=== PATIENT | male | born 1970 | race Caucasian/White ===

== ENCOUNTER → 2018-02-12 13:58 | Outpatient (CLI) | payer SELFPAY ==
[2018-02-12 14:24] VITALS: BP 125/90; PULSE 79; RESP 15; TEMP 37.2; O2SAT 97; BMI 32.8
[2018-02-12 14:48] VITALS: BP 110/81; PULSE 86; RESP 15; O2SAT 96
[2018-02-12 15:47] LABS: Absolute Lymphocyte Count 1.61 X10^3/ul (0.83-4.51); Absolute Neutrophil Count 2.1 X10^3/uL (2.0-7.7); Basophil# 0.02 X10^3/uL; Basophil% 0.5 % (0-1); Eosinophil# 0.07 X10^3/uL; Eosinophils% 1.6 % (0-5); Hematocrit 46.4 % (40-54); Hemoglobin 16.6 g/dl (13.0-16.5); Immature Platelet Fraction 3.2 % (1.0-7.9); Lymphocyte # 1.61 X10^3/ul (4.0); Lymphocyte % 37.5 % (19-41); Mean Corp Hgb Conc 35.8 g/gl (32-36); Mean Corpuscular Hgb 32.9 pg (27.0-32.0); Mean Corpuscular Volume 91.9 fL (80-94); Mean Platelet Vol. 11.2 fl (6.2-12.0); Monocyte# 0.45 X10^3/uL; Monocyte% 10.5 % (0-10); Neutrophil # 2.13 X10^3/uL (2.7-7.7); Neutrophil % 49.7 % (47-70); Platelet Count 208 K/mm3 (150-450); RBC Distribution Width CV 12.5 % (11.6-14.6); RBC Distribution Width SD 41.9 fl (35.1-43.9); Red Blood Count 5.05 M/mm3 (4.6-6.2); Reticulocyte Count 2.23 % (0.5-1.5); White Blood Count 4.3 K/mm3 (4.4-11.0)
[2018-02-12 15:54] LABS: Ferritin 200 ng/mL (26-388)
[2018-02-12 16:09] LABS: POSITIVE COUNT NO; POSITIVE DIFFERENTIAL NO; POSITIVE MORPHOLOGY NO
== END ==
PROVIDERS: Family Provider Family Medicine; PCP Family Medicine; Referring Provider Family Medicine; Visit Provider Family Medicine
DX: E83.118 Other hemochromatosis (principal)
CPT/HCPCS: 82728; 85025; 85045; 99195; A4216

== ENCOUNTER → 2018-11-07 15:05 | Outpatient (CLI) | payer OTHER, SELFPAY ==
[2018-02-12 14:24] VITALS: BMI 32.8
[2018-11-07 15:18] VITALS: BP 144/84; PULSE 73; RESP 16; TEMP 36.8; BMI 32.8
== END ==
PROVIDERS: Family Provider Family Medicine; PCP Family Medicine; Referring Provider Family Medicine; Visit Provider Family Medicine
DX: E83.119 Hemochromatosis, unspecified (principal)
CPT/HCPCS: 99195; A4216

== ENCOUNTER 2020-11-26 21:41 | Emergency (ER) | payer OTHER, SELFPAY ==
[2020-11-26 21:43] VITALS: BP 162/102; PULSE 74; RESP 18; TEMP 36.1; O2SAT 98; BMI 33.8
--- NOTE | 2020-11-26 22:10 | EKG12_ITS ---
Test Reason : DIZZINESS Blood Pressure : / mmHG Vent. Rate : 079 BPM Atrial Rate : 079 BPM P-R Int : 166 ms QRS Dur : 080 ms QT Int : 368 ms P-R-T Axes : 036 000 007 degrees QTc Int : 421 ms Sinus rhythm with sinus arrhythmia with occasional Premature ventricular complexes Otherwise normal ECG Confirmed by SEVEN MOJICA, JUANIS ([id number]), editor producer GORGE PERDOMO ([id number]) on 11/30/2020 1:01:13 PM Referred By: YUDITH Confirmed By:JUANIS AMEZCUA MD
--- NOTE | 2020-11-26 22:10 | CT_ITS ---
EXAMINATION : Head CT w/out contrast HISTORY : dizziness COMPARISON : None. TECHNIQUE : Multiple contiguous axial images were obtained from the skull base to the vertex without intravenous contrast. A radiation dose optimization technique was used for this scan. FINDINGS : The ventricles and sulci are normal in size. There is no evidence for acute intracranial hemorrhage, mass effect, or midline shift. There is no extra-axial fluid collection. There is normal somers-white differentiation, without CT evidence of acute ischemia or infarct. The skull base and calvarium are unremarkable. The orbits are unremarkable. Mucosal thickening of the bilateral maxillary sinuses. The mastoid air cells are well-aerated. The soft tissues are unremarkable. CT/Brain/Head without Contrast IMPRESSION: No acute intracranial abnormality. Bilateral maxillary sinusitis. Electronically Signed: Atul Umana MD at 23:14 EDT Tel , Service support ,
--- NOTE | 2020-11-26 22:13 | EX.ED.DYSGE1 ---
HPI History of Present Illness Chief Complaint: Dizziness Narrative Narrative: Patient is a 50-year-old male with history of hypertension. He states this evening he was at work when he had a bout of loose stool and then episodes of vomiting. He states he was standing doing his job following this and then began to feel lightheaded like he was going to pass out. He denies any palpitations or chest pain or shortness of breath associated with this. He denies any recent head trauma or headache. He states she was able to sit at rest for approximately 30 minutes and then began to feel better. However with the symptoms occurring at work they had concern and therefore sent him in for evaluation [facility] Medical History Hemochromatosis Hypertension Home Medications losartan 75 mg PO DAILY 11/26/20 [History Last Taken Unknown] Allergy/AdvReac Type Severity Reaction Status Date / Time No Known Allergies Allergy Verified 11/26/20 21:42 Social History Smoking Status: Former smoker ROS ROS ED Constitutional Constitutional ED: Denies chills or fever(s) Eyes Eyes: Denies change in vision ENT ENT ED: Denies sore throat Cardiovascular Cardiovascular: Denies chest pain, palpitations or racing heartbeat Respiratory/Chest Respiratory/Chest: Denies cough or dyspnea Gastrointestinal Gastrointestinal: Reports diarrhea, nausea and vomiting; Denies abdominal pain Genitourinary Genitourinary ED: Denies dysuria Musculoskeletal Musculoskeletal: Denies myalgias Integumentary Denies rash Neurologic Neurologic: Reports other Details: Positive dizziness ; Denies headache(s) Hematologic/Lymphatic Hematologic/Lymphatic: Denies easy bleeding or easy bruising EXAM Physical Exam Const Vital Signs: 11/26/20 21:43 11/26/20 21:51 11/26/20 22:25 Temperature 97.0 F L Temperature Source Temporal Pulse Rate 74 Pulse Rate [Lying] 77 Pulse Rate [Sitting] 88 Pulse Rate [Standing] 93 Respiratory Rate 18 Respiratory Effort Normal Non-Labored Respiratory Pattern Normal Blood Pressure 162/102 H Blood Pressure [Lying] 138/88 H Blood Pressure [Sitting] 138/94 H Blood Pressure [Standing] 140/105 H Blood Pressure Mean 122 Blood Pressure Mean [Lying] 104 Blood Pressure Mean [Sitting] 108 Blood Pressure Mean [Standing] 116 Pulse Ox 98 Oxygen Delivery Method Room Air Positive well nourished and well developed General Appearance ED: well developed HEENT Reports TM's clear and moist mucous membranes Tympanic Membrane ED: Yes TM's clear Eyes PERRL and EOMs intact bilaterally Neck supple and no JVD Resp normal respiratory effort and clear to auscultation bilaterally Cardio regular rate and regular rhythm Rate: other Other Details: Radial pulses are +2-4 bilaterally are equal and symmetric GI normal to inspection, nondistended, normoactive bowel sounds, non-tender and non-distended GI Narrative: No voluntary guarding or rigidity no pulsatile mass Auscultation: normoactive bowel sounds Palpation: soft Extremity normal to inspection Extremity Narrative: No asymmetric edema no pitting edema negative Homans' sign bilaterally Neuro oriented x3 and CN's II-XII intact bilaterally Neuro Narrative: No pronator drift or dysmetria no truncal ataxia. No nystagmus noted negative Hallpike Harrison exam. Sensorium / Orientation: alert Motor Exam: strength 5/5 throughout Psych mental status grossly normal Skin no rashes or lesions noted MDM MDM MDM Narrative Medical decision making narrative: Patient presented to the ER hypertensive but does have a history of high blood pressure. He had normal neurologic exam and spontaneous resolution of his symptoms. With report of dizziness as well as having bouts of vomiting prior to this I did elect to perform a head CT as well as basic cardiac work-up. Labs showed slight elevation in his creatinine at 1.44 but overall no clinically significant finding. Head CT was also normal. Orthostatic vital signs were negative but based on the mild bump to his creatinine he was given a liter of fluid. On reevaluation he is resting comfortably and remains in no acute distress and has no further bouts of dizziness and therefore safe for discharge Lab Data Attestation: I reviewed the patient's lab results. Labs: Laboratory Results - last 24 hr 11/26/20 11/26/20 22:24 22:24 WBC 7.7 RBC 5.04 Hgb 16.8 H Hct 46.5 MCV 92.3 MCH 33.3 H MCHC 36.1 H RDW Std Deviation 41.5 RDW Coeff of Lindsey 12.3 Plt Count 241 MPV 11.0 Immature Gran % (Auto) 0.300 Neut % (Auto) 62.1 Lymph % (Auto) 27.6 [place] % (Auto) 8.8 Eos % (Auto) 0.8 Baso % (Auto) 0.4 Absolute Neuts (auto) 4.8 Absolute Lymphs (auto) 2.14 Nucleated RBC % 0 Sodium 138 Potassium 4.1 Chloride 108 H Carbon Dioxide 27.0 Anion Gap 3 L BUN 21 H Creatinine 1.44 H Estim Creat Clear Calc 65.36 Est GFR (MDRD) Af Amer 67 Est GFR (MDRD) Non-Af 55 L BUN/Creatinine Ratio 14.6 Glucose 116 H Calcium 8.6 Magnesium 2.2 Troponin I High Sens 6 Radiography Diagnostic Testing: Radiology Impression Brain CT 11/26/20 22:10 IMPRESSION: No acute intracranial abnormality. Bilateral maxillary sinusitis. Electronically Signed: Atul Umana MD at 23:14 EDT Tel , Service support , Discharge Plan Triage Chief Complaint: Dizziness ED Provider: Maikel Hopper Dx/Rx/DC Orders Clinical Impression: Near syncope Instructions: ED Near-Fainting, Uncertain Cause Prescriptions: No Action losartan 50 mg tablet 75 mg PO DAILY RF: 0 Primary Care Provider: Donnie Carmona Referrals: Donnie Carmona MD [Primary Care Provider] - Disposition Disposition: Home, Self Care
[2020-11-26 22:25] VITALS: BP 138/88; BP 138/94; BP 140/105; PULSE 77; PULSE 88; PULSE 93
[2020-11-26 22:52] LABS: Anion Gap 3 (5-15); BUN 21 mg/dL (7-18); BUN/Creat Ratio 14.6 RATIO (10-20); Calcium,Total 8.6 mg/dL (8.5-10.1); Chloride 108 mmol/L (98-107); Creatinine, Serum 1.44 mg/dL (0.70-1.30); EST Glomerular Filtration Rate 55 mL/min (>60); Est Glom Filt Rate - Afr Amer 67 mL/min (>60); Estimated Creatinine Clearance 65.36 ml/min; Glucose 116 mg/dL (74-106); Magnesium 2.2 mg/dL (1.6-2.6); Potassium 4.1 mmol/L (3.5-5.1); Sodium Level 138 mmol/L (136-145); Troponin-I HS 6 pg/mL (3.0-78.0)
[2020-11-26 22:59] LABS: Absolute Lymphocyte Count 2.14 X10^3/uL (0.83-4.51); Absolute Neutrophil Count 4.8 X10^3/uL (2.0-7.7); Basophil# 0.03 X10^3/uL; Basophil% 0.4 % (0-1); Eosinophil# 0.06 X10^3/uL; Eosinophils% 0.8 % (0-5); Hematocrit 46.5 % (40-54); Hemoglobin 16.8 g/dL (13.0-16.5); Lymphocyte # 2.14 X10^3/ul (0.83-4.51); Lymphocyte % 27.6 % (19-41); Mean Corp Hgb Conc 36.1 g/dL (32-36); Mean Corpuscular Hgb 33.3 pg (27.0-32.0); Mean Corpuscular Volume 92.3 fL (80-94); Monocyte# 0.68 X10^3/uL; Monocyte% 8.8 % (0-10); NRBC Flagged by Analyzer 0 % (0-5); Neutrophil # 4.81 X10^3/uL (2.7-7.7); Neutrophil % 62.1 % (47-70); Platelet Count 241 K/mm3 (150-450); RBC Distribution Width CV 12.3 % (11.6-14.6); RBC Distribution Width SD 41.5 fl (35.1-43.9); Red Blood Count 5.04 M/mm3 (4.6-6.2); White Blood Count 7.7 K/mm3 (4.4-11.0)
[2020-11-26] MEDS: 0.9% Normal Saline 1,000 ML 999 ML IV (23:51)
[2020-11-27 01:12] VITALS: BP 135/76; PULSE 78; RESP 16; O2SAT 95
== END 2020-11-27 01:12 | disposition home or self-care (01) ==
PROVIDERS: Emergency Provider Emergency Medicine; PCP Family Medicine
DX: R55 Syncope and collapse (principal); R19.7 Diarrhea, unspecified; R11.2 Nausea with vomiting, unspecified; E83.119 Hemochromatosis, unspecified; I10 Essential (primary) hypertension; Z79.899 Other long term (current) drug therapy; Z87.891 Personal history of nicotine dependence
CPT/HCPCS: 70450; 80048; 83735; 84484; 85025; 93005; 96360; 99284; J7030; A4216

== ENCOUNTER → 2022-01-07 | Outpatient (CLI) | payer OTHER, SELFPAY ==
[2022-01-07 13:24] VITALS: BP 142/92; PULSE 63; RESP 16; TEMP 36; O2SAT 98; BMI 32.1
[2022-01-07 13:33] VITALS: BP 143/87; PULSE 71; RESP 16
== END | disposition home or self-care (01) ==
LOC: MEDOUTP 13:07
PROVIDERS: PCP Family Medicine; Referring Provider Physician Assistant; Visit Provider Physician Assistant
DX: E83.118 Other hemochromatosis (principal)
CPT/HCPCS: 99195

== ENCOUNTER 2023-02-03 22:09 | Emergency (ER) | payer OTHER, SELFPAY ==
[2023-02-03] VITALS (8 sets, daily range): BP systolic 122–170; BP diastolic 74–99; PULSE 75–87; RESP 27–30; TEMP 36; O2SAT 98–100; BMI 36.8
--- NOTE | 2023-02-03 22:31 | EKG12_ITS ---
Test Reason : CP Blood Pressure : / mmHG Vent. Rate : 076 BPM Atrial Rate : 076 BPM P-R Int : 162 ms QRS Dur : 078 ms QT Int : 356 ms P-R-T Axes : 035 -02 002 degrees QTc Int : 400 ms Sinus rhythm with sinus arrhythmia with frequent Premature ventricular complexes and Fusion complexes Otherwise normal ECG Confirmed by YAMILE MOJICA, DANA ([id number]), advertising editor JOSH RAMACHANDRAN ([id number]) on 02/06/2023 10:34:44 AM Referred By: LANE Confirmed By:DANA OVALLE MD
[2023-02-03 22:40] LABS: Absolute Lymphocyte Count 2.14 X10^3/uL (0.83-4.51); Absolute Neutrophil Count 2.5 X10^3/uL (2.0-7.7); Basophil# 0.04 X10^3/uL; Basophil% 0.7 % (0-1); Eosinophil# 0.11 X10^3/uL; Hematocrit 46.3 % (40-54); Hemoglobin 16.5 g/dL (13.0-16.5); Lymphocyte # 2.14 X10^3/ul (0.83-4.51); Lymphocyte % 38.1 % (19-41); Mean Corp Hgb Conc 35.6 g/dL (32-36); Mean Corpuscular Volume 92.6 fL (80-94); Mean Platelet Vol. 10.9 fl (6.2-12.0); Monocyte# 0.87 X10^3/uL; Monocyte% 15.5 % (0-10); NRBC Flagged by Analyzer 0 % (0-5); Neutrophil # 2.45 X10^3/uL (2.7-7.7); Neutrophil % 43.5 % (47-70); Platelet Count 232 K/mm3 (150-450); RBC Distribution Width SD 40.9 fl (35.1-43.9); White Blood Count 5.6 K/mm3 (4.4-11.0)
[2023-02-03] MEDS: Aspirin 81 MG TAB.CHEW 324 MG PO (22:40)
--- NOTE | 2023-02-03 22:40 | ED.VIS.CHEST ---
HPI History of Present Illness Chief Complaint: Chest Pain Informant: patient Narrative Narrative: Patient started having left-sided chest discomfort that feels dull and pressing last night has been intermittent today, much worse tonight which brought him to the ER. Nonpleuritic. States he feels short of breath, but when asked if the worst pain made his breathing worse he states no, the dyspnea preceded all of this chest discomfort and he cannot tell me how long he has had issues with breathing. He states the chest discomfort has not changed with position, has not been triggered with certain foods or eating in general today, seems nonexertional. Does not radiate to his jaw, neck, arm or back. No sharp tearing discomfort. No syncope or lightheadedness. No palpitations. No diaphoresis. Denies any abdominal discomfort, nausea, vomiting. States his brother had a heart attack somewhere around the age of 55, he has another brother who had a stroke, and his father of stroke. He denies any recent leg pain or swelling, recent travel out of the area or long immobilization, no recent hospitalization or surgery. States he is healthy otherwise that he knows of except for hypertension which he takes medication for. [facility] Medical History Hemochromatosis Hypertension Home Medications losartan 50 mg tablet 75 mg PO DAILY 11/26/20 [History Last Taken 02/03/23] Allergy/AdvReac Type Severity Reaction Status Date / Time No Known Allergies Allergy Verified 02/03/23 22:09 Social History Smoking Status: Former smoker ROS ROS ED Constitutional Constitutional ED: Denies chills or fever(s) Eyes Eyes: Denies change in vision or diplopia ENT ENT ED: Denies rhinorrhea or sore throat Cardiovascular Cardiovascular: Reports chest pain; Denies orthopnea, palpitations or racing heartbeat Respiratory/Chest Respiratory/Chest: Reports dyspnea; Denies cough, dyspnea on exertion or orthopnea Gastrointestinal Gastrointestinal: Denies abdominal pain, diarrhea, nausea or vomiting Genitourinary Genitourinary ED: Denies dysuria or hematuria Musculoskeletal Musculoskeletal: Denies back pain, extremity pain or neck pain Integumentary Denies abscess or rash Neurologic Neurologic: Denies headache(s), paresthesias or weakness Psychiatric Psychiatric: Denies anxiety or suicidal thoughts EXAM Physical Exam Const Vital Signs: 02/03/23 22:10 02/03/23 22:12 02/03/23 22:16 Temperature 96.8 F L 96.8 F L Temperature Source Temporal Temporal Pulse Rate 79 79 Respiratory Rate 28 H 28 H Respiratory Effort Short of Breath Respiratory Pattern Tachypnea Blood Pressure 170/99 H 170/99 H Blood Pressure Mean 122 122 Pulse Ox 100 100 Oxygen Delivery Method Room Air Room Air 02/03/23 22:21 02/03/23 22:41 02/03/23 22:41 Temperature Temperature Source Pulse Rate 75 78 Respiratory Rate 30 H 27 H Respiratory Effort Respiratory Pattern Blood Pressure 143/96 H 157/81 H Blood Pressure Mean 111 106 Pulse Ox 99 99 99 Oxygen Delivery Method Room Air Room Air Room Air 02/03/23 22:53 02/03/23 22:58 02/03/23 23:04 Temperature Temperature Source Pulse Rate 75 82 87 Respiratory Rate 27 H Respiratory Effort Respiratory Pattern Blood Pressure 140/87 H 126/83 H 127/83 H Blood Pressure Mean 97 Pulse Ox 98 Oxygen Delivery Method Room Air 02/03/23 23:45 02/04/23 00:28 02/04/23 01:51 Temperature Temperature Source Pulse Rate 76 68 66 Respiratory Rate 28 H 21 H 16 Respiratory Effort Respiratory Pattern Blood Pressure 122/74 H 114/73 131/87 H Blood Pressure Mean 90 86 101 Pulse Ox 99 98 99 Oxygen Delivery Method Room Air Room Air Room Air Positive well nourished, well developed and obese General Appearance ED: well developed and NAD Nutritional Appearance: obese HEENT Reports moist mucous membranes normocephalic and atraumatic Eyes PERRL and EOMs intact bilaterally Neck full ROM and supple Chest Wall inspection of chest normal and palpation of chest normal Resp normal respiratory effort and clear to auscultation bilaterally Cardio regular rate, regular rhythm and no murmurs Rate: Negative for tachycardic GI non-tender and non-distended Auscultation: normoactive bowel sounds Palpation: soft Back/Spine no CVA tenderness General Back: other FROM Extremity normal to inspection General Extremety ED: Negative for edema, pulses abnormal or tenderness General Extremity: Negative for edema or pulses abnormal Neuro oriented x3, CN's II-XII intact bilaterally and no sensory deficits noted Sensorium / Orientation: awake and alert Motor Exam: strength 5/5 throughout Psych Mood & Affect: anxious Skin no rashes or lesions noted and no wounds Heart Score History: Moderately Suspicious ECG: Normal Age: >45 - <65 years Risk Factors: 1 or 2 Risk Factors Troponin: </= Normal Limit Score: 3 MDM MDM MDM Narrative Medical decision making narrative: Patient's workup largely negative. Chest x-ray normal 1 view on my interpretation, D-dimer negative ruling out pulmonary embolus, 2 sequential troponins negative with a second 1 actually going down. Nitroglycerin did help his chest discomfort some, and he remained stable with better blood pressures as a result. His EKG is normal except for having some ectopy on the monitor, he is asymptomatic from it. He should follow-up because he does have risk factors, but I do not think he needs to be admitted to the hospital, his heart score is 3 which is low risk. He is comfortable this plan, certainly esophageal etiologies are in the differential. Follow-up advised. Lab Data Attestation: I reviewed the patient's lab results. Labs: Laboratory Results - last 24 hr 02/03/23 02/04/23 22:22 00:30 WBC 5.6 RBC 5.00 Hgb 16.5 Hct 46.3 MCV 92.6 MCH 33.0 H MCHC 35.6 RDW Std Deviation 40.9 RDW Coeff of Lindsey 12.0 Plt Count 232 MPV 10.9 Immature Gran % (Auto) 0.200 Neut % (Auto) 43.5 L Lymph % (Auto) 38.1 [place] % (Auto) 15.5 H Eos % (Auto) 2.0 Baso % (Auto) 0.7 Absolute Neuts (auto) 2.5 Absolute Lymphs (auto) 2.14 Nucleated RBC % 0 D-Dimer Quant (PE/DVT) < 0.27 L Sodium 140 Potassium 3.8 Chloride 111 H Carbon Dioxide 25.0 Anion Gap 4 L BUN 22 H Creatinine 1.21 Estim Creat Clear Calc 75.20 Est GFR (MDRD) Af Amer 81 Est GFR (MDRD) Non-Af 67 BUN/Creatinine Ratio 18.2 Glucose 129 H Calcium 9.2 Troponin I High Sens 8 7 Radiography Diagnostic Testing: Clinical Impression(s) from Imaging Studies Chest X-Ray 02/03/23 22:45 IMPRESSION: No evidence of cardiopulmonary disease. Electronically Signed: Adelfo Amin DO at 23:17 EST , Rhythm Strip Rhythm Strip: Sinus Rhythm Rate: 75 Ectopy: PVC(s) EKG Initial EKG: Attestation: I personally reviewed and interpreted this EKG as follows: Interpretation: Sinus Rhythm and No Acute Injury Pattern Comments: PVCs Discharge Plan Triage Chief Complaint: Chest Pain ED Provider: Tim Shook Dx/Rx/DC Orders Clinical Impression: Asymptomatic PVCs, Dyspnea, Chest pain Instructions: PVCs, ED Chest Pain, Uncertain Cause Prescriptions: No Action losartan 50 mg tablet 75 mg PO DAILY Patient Comments: TAKE 1 & 1 2 (ONE & ONE HALF) TABLETS BY MOUTH ONCE DAILY Primary Care Provider: Donnie Carmona Referrals: Donnie Carmona MD [Primary Care Provider] - As soon as possible Disposition Disposition: Home, Self Care
--- NOTE | 2023-02-03 22:45 | RAD_ITS ---
INDICATION: chest pain EXAMINATION/TECHNIQUE: X-RAY - XR Chest 1 View COMPARISON: None. FINDINGS: LINES/DEVICES: None. LUNGS: No consolidation or evidence of an effusion. No evidence of edema or a pneumothorax. MEDIASTINUM AND CARDIOVASCULAR STRUCTURES: Cardiac silhouette is normal in size and contour. Mediastinum is unremarkable. BONES AND SOFT TISSUES: No acute abnormality. RAD/Chest 1 View (Portable) IMPRESSION: No evidence of cardiopulmonary disease. Electronically Signed: Adelfo Amin DO at 23:17 EST ,
[2023-02-03] MEDS: Nitroglycerin SL (ED/IMG/CATH) 0.4 MG TABLET SL ×2 (22:53→22:58)
[2023-02-03 22:59] LABS: Anion Gap 4 (5-15); BUN 22 mg/dL (7-18); BUN/Creat Ratio 18.2 RATIO (10-20); Calcium,Total 9.2 mg/dL (8.5-10.1); Chloride 111 mmol/L (98-107); Creatinine, Serum 1.21 mg/dL (0.70-1.30); EST Glomerular Filtration Rate 67 mL/min (>60); Est Glom Filt Rate - Afr Amer 81 mL/min (>60); Glucose 129 mg/dL (74-106); Potassium 3.8 mmol/L (3.5-5.1); Sodium Level 140 mmol/L (136-145); Troponin-I HS (w/2H Reflex) 8 pg/mL (3.0-78.0)
[2023-02-03 23:05] LABS: D-Dimer Quantitative (DVT/PE) < 0.27 FEU/ug/m (0.27-0.49)
[2023-02-04 00:28] VITALS: BP 114/73; PULSE 68; RESP 21; O2SAT 98
[2023-02-04 00:35] LABS: Reflex Troponin-HS? (from REC) Y
[2023-02-04 00:58] LABS: Troponin-I HS 7 pg/mL (3.0-78.0)
[2023-02-04 01:51] VITALS: BP 131/87; PULSE 66; RESP 16; O2SAT 99
[2023-02-04 02:24] VITALS: RESP 16; TEMP 37.2
== END 2023-02-04 02:28 | disposition home or self-care (01) ==
PROVIDERS: Emergency Provider Emergency Medicine; PCP Family Medicine; Visit Provider Emergency Medicine
DX: I49.3 Ventricular premature depolarization (principal); R07.9 Chest pain, unspecified; R06.00 Dyspnea, unspecified; I10 Essential (primary) hypertension; Z79.899 Other long term (current) drug therapy; Z87.891 Personal history of nicotine dependence
CPT/HCPCS: 71045; 80048; 84484; 85025; 85379; 93005; 99285; J7030

== ENCOUNTER 2023-03-24 06:40 | Day surgery (SDC) | payer OTHER, SELFPAY ==
[2023-03-23 09:25] VITALS: BMI 37.0
--- OUTSIDE RECORDS SUMMARY | 2023-03-24 07:07 | XMS RPT_ITS | CCD ---
Author Name Unknown Address [address] [place] [address] Organization [facility] Care Team Providers Care Web Graphic Designer Name Role Phone Unavailable Primary Care Provider UnavailMeli Easton Primary Care Provider Tod Cruz MD Unavailable MELI SORIANO Primary Care TOD Mejia Referring Unavailable JOSE SOOD Referring Unavailable MELI SORIANO Primary Care JOSE June Referring Unavailable TOD CRUZ Attending Unavailable MELI SORIANO Primary Care TOD Mejia Referring Unavailable JOSE SOOD Attending Unavailable MELI SORIANO Consulting Unavailable JOSE SOOD Admitting Unavailable JOSE SOOD Primary Care Unavailable PROVIDER, UNKNOWN Consulting Unavailable PROVIDER, UNKNOWN Consulting Unavailable PROVIDER, UNKNOWN Consulting Unavailable Meli Soriano MD Unavailable [phone] Hematology Provider Unavailable Unavailable Monalisa PRINCE, Linnette Unavailable Shantell Spears PA-C Unavailable [phone] Duglas Domingo MD Unavailable Seema Jara PA-C Unavailable [phone] Jose Sood PA-C Unavailable [phone] Jonna Sood Unavailable Unavailable Katherine Landa MA Unavailable Unavailable Sayra Ahn LPN Unavailable Unavailable Ceci COLVIN, Seema Dugan Unavailable Unavaila herrera Soriano LPN, Ellen Unavailable Unavailable Nikhil FINANCIAL RISK MANAGER, Pravin Unavailable Unavailable Radha COLVIN, Katlin Dumont Unavailable Unavailable Francisco FINANCIAL RISK MANAGER, Shawna Unavailable Unavailable Nahun GONZALEZ, Corazon Mays Unavailable [phone] Miguel Misa L Unavailable Rei FINANCIAL RISK MANAGER, Jane Chinchilla Unavailable Unavailab judith Mcintyre MA, Sayra Unavailable Unavailable Vess FINANCIAL RISK MANAGER, Payton Green Unavailable Unavailable Wengergisell FINANCIAL RISK MANAGER, [place] Unavailable Unavailabl e Unavailable Unavailable Allergies Allergy Classification Reported Allergen(s) Allergy Type Date of Onset Reaction(s) Facility (1 source) Angiotensin-conve rting enzyme inhibitor agent Cough [facility], [facility].; [facility]. Medications Current Medications Medication Drug Class(es) Dates Sig (Normalized) Sig (Original) losartan potassium 50 mg oral tablet (6 sources) Angiotensin 2 Receptor Vera Start: 11-25-2022 losartan 50 mg tablet ; 1 1/2 Tablet daily for 90 days Quantity: 135 {Tablet} Refills: 1 Ordered: 25-Nov-2022 LISA Sood Start: 25-Nov-2022 Completed/Discontinued Medications Medication Drug Class(es) Dates Sig (Normalized) Sig (Original) amoxicillin 500 mg oral tablet (1 source) Penicillin-class Antibacterial Start: 02-17-2011 End: 02-27-2011 take 1 tablet by mouth three times daily AMOXICILLIN, 500MG (Oral Tablet) ; 1 Tablet TID for 10 days Quantity: 30 {Tablet} Refills: 0 Ordered: 17-Feb-2011 LISA Garnica Start: 17-Feb-2011 End: 27-Feb-2011 Status: Inactive azithromycin 500 mg oral tablet (1 source) Macrolide Antimicrobial Start: 06-14-2014 End: 06-17-2014 take 1 tablet by mouth once daily AZITHROMYCIN, 500MG (Oral Tablet) ; 1 (one) Tablet daily for 3 days Quantity: 3 {Tablet} Refills: 0 Ordered: 14-Jun-2014 MD Duglas Domingo Start: 14-Jun-2014 End: 17-Jun-2014 Status: Inactive codeine phosphate 2 mg/ml / promethazine hydrochloride 1.25 mg/ml oral solution (1 source) Opioid Agonist, Phenothiazine Start: 02-20-2012 End: 11-15-2012 PROMETHAZINE-COD EINE, 6.25-10MG/5ML (Oral Syrup) ; 1-2 teaspoon(s) four times daily, as needed for 0 days Quantity: 120 {Milliliter} Refills: 1 Ordered: 15-Nov-2012 SURESH Calvert Start: 20-Feb-2012 End: 15-Nov-2012 Status: Inactive Comments: Medication taken as needed. Problems Active Problems Problem Classification Problem Date Documented Date Episodic/Chronic Acute bronchitis (1 source) Acute bronchitis 06-14-2014 Episodic Administrative/socia l admission (2 sources) Issue of repeat prescriptions 10-05-2013 Episodic Conditions associated with dizziness or vertigo (4 sources) Dizziness; Translations: [Dizziness and giddiness] 12-17-2020 Episodic Esophageal disorders (2 sources) Gastroesophageal reflux disease; Translations: [Gastro-esophageal reflux disease without esophagitis] 02-10-2023 Chronic Essential hypertension (15 sources) Benign hypertension; Translations: [Essential (primary) hypertension] 02-07-2017 Chronic Immunizations and screening for infectious disease (1 source) Exposure to streptococcal pharyngitis; Translations: [Contact with and (suspected) exposure to other bacterial communicable diseases] 02-17-2011 Episodic Nausea and vomiting (1 source) Nausea; Translations: [Nausea] 11-26-2020 Episodic Nonspecific chest pain (3 sources) Chest pain; Translations: [Chest pain, unspecified] 02-10-2023 Episodic Other aftercare (2 sources) Post-discharge follow-up; Translations: [Encounter for follow-up examination after completed treatment for conditions other than malignant neoplasm] 02-10-2023 Episodic Other lower respiratory disease (2 sources) Angiotensin-converting -enzyme inhibitor adverse reaction; Translations: [Cough] 02-10-2023 Episodic Other lower respiratory disease (1 source) Dyspnea; Translations: [Dyspnea, unspecified] 12-17-2020 Episodic Other nutritional; endocrine; and metabolic disorders (8 sources) Hereditary hemochromatosis; Translations: [Hereditary hemochromatosis] Onset: 12-30-2022 12-30-2022 Chronic Other nutritional; endocrine; and metabolic disorders (1 source) Hemochromatosis; 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] 12-29-2022 Chronic Other nutritional; endocrine; and metabolic disorders (1 source) Hereditary hemochromatosis; Translations: [Hereditary hemochromatosis (HCC)] Onset: 12-30-2022 Chronic Other nutritional; endocrine; and metabolic disorders (1 source) Other hemochromatosis; 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] Onset: 12-30-2022 Chronic Other nutritional; endocrine; and metabolic disorders (9 sources) Body mass index 30+ - obesity; Translations: [Body mass index (BMI) 33.0-33.9, adult] 02-10-2023 Chronic Other nutritional; endocrine; and metabolic disorders (20 sources) Erythropoietic hemochromatosis; 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] 02-10-2023 Chronic Other screening for suspected conditions (not mental disorders or infectious disease) (16 sources) Patient encounter status; Translations: [Encounter for screening for lipoid disorders] 02-08-2023 Episodic Residual codes; unclassified (2 sources) FH: premature coronary heart disease; Translations: [Family history of ischemic heart disease and other diseases of the circulatory system] 02-10-2023 Episodic Residual codes; unclassified (2 sources) Influenza vaccination declined; Translations: [Immunization not carried out because of patient refusal] 02-10-2023 Episodic Screening and history of mental health and substance abuse codes (1 source) Ex-smoker; Translations: [Personal history of nicotine dependence] 02-10-2023 Episodic Syncope (3 sources) Near syncope; Translations: [Syncope and collapse] 02-10-2023 Episodic Unclassified (1 source) Well adult male - The patient feels well with no complaints. The patient has a balanced diet. The patient exercises daily (Active lifestyle). The patient sleeps 7 hours per night. 11-25-2022 Unclassified (1 source) Follow up for multiple chronic conditions - The patient is here for follow-up of hypertension. The patient always takes the prescribed medications. No side effects noted. The patient has an active lifestyle but no regular exercise program. The patient's out of office blood pressure checks occur frequently and dietary compliance is fairly good usually adhering to recommendations. The patient states that weight is unchanged. The patient states that the disease has no overall impact. Note for Multiple chronic conditions follow-up : -Also has hemochromatosis but has not had recent phlebotomy done. He checks his bp at home and says its normal. 11-04-2020 Unclassified (1 source) [ADDITIONAL REASON] Well adult male - The patient feels well with minor complaints, has good energy level and is sleeping well. Patient does not exercise. Patient sleeps 7 hours per night. 11-04-2020 Unclassified (1 source) Follow up for multiple chronic conditions - The patient is here for follow-up of hypertension. The patient always takes the prescribed medications. No side effects noted. The patient has an active lifestyle but no regular exercise program. The patient's out of office blood pressure checks occur frequently and dietary compliance is fairly good usually adhering to recommendations. The patient states that weight is unchanged. The patient states that the disease has no overall impact. Note for Multiple chronic conditions follow-up : -Also has hemachromatosis. He asked for hgb check today. He checks his bp at home and says its normal. 05-24-2019 Unclassified (1 source) Follow up for multiple chronic conditions - The patient is here for follow-up of hypertension. The patient always takes the prescribed medications. No side effects noted. The patient has an active lifestyle but no regular exercise program. The patient's out of office blood pressure checks occur frequently and dietary compliance is fairly good usually adhering to recommendations. The patient states that weight is unchanged. The patient states that the disease has no overall impact. Note for Multiple chronic conditions follow-up : -Also has hemachromatosis. 10-26-2018 Unclassified (1 source) Follow up for multiple chronic conditions - The patient is here for follow-up of hypertension. The patient always takes the prescribed medications. No side effects noted. The patient has an active lifestyle but no regular exercise program. The patient's out of office blood pressure checks occur frequently and dietary compliance is fairly good usually adhering to recommendations. The patient states that weight is unchanged. The patient states that the disease has no overall impact. 07-27-2017 Unclassified (1 source) Follow up for multiple chronic conditions - The patient is here for follow-up of hypertension. The patient always takes the prescribed medications. No side effects noted. The patient engages in regular exercise program 1-3 times per week. The patient's out of office blood pressure checks occur frequently. The patient states that weight has increased (increased 5#). 02-09-2017 Unclassified (1 source) Follow up for multiple chronic conditions - The patient is here for follow-up of hypertension, obesity and other condition(s) (hemochromotosis). The patient always takes the prescribed medications. No side effects noted. The patient has an active lifestyle but no regular exercise program. The patient's out of office blood pressure checks occur occasionally (forgot his log--reports diastolic 80-90). Note for Multiple chronic conditions follow-up : -Feels well right now. Recent phlebotomy tx.Several weeks ago had ER visit x 2 for severe headache that might have been sinus related. It is better now. 07-29-2016 Unclassified (1 source) [ADDITIONAL REASON] Transition into care - The patient is transitioning into care from an emergency room and a summary of care was reviewed. 07-29-2016 Unclassified (1 source) Follow up for multiple chronic conditions - The patient is here for follow-up of hypertension and other condition(s) (hemochromotosis). The patient always takes the prescribed medications. No side effects noted. The patient has an active lifestyle but no regular exercise program. The patient's out of office blood pressure checks occur occasionally (forgot his log). Note for Multiple chronic conditions follow-up : -Last CBC and retic count 03/2015. Last Phleb in Mar 2015. Feeling well right now. 07-01-2015 Unclassified (1 source) Follow up for multiple chronic conditions - The patient is here for follow-up of hypertension and other condition(s) (hemochromotosis). The patient always takes the prescribed medications. No side effects noted. The patient has an active lifestyle but no regular exercise program. The patient's out of office blood pressure checks occur rarely. 03-27-2015 Unclassified (1 source) Follow up for multiple chronic conditions - The patient is here for follow-up of hypertension. The patient always takes the prescribed medications. No side effects noted. The patient has an active lifestyle but no regular exercise program. The patient's out of office blood pressure checks occur rarely. 12-02-2013 Past or Other Problems Problem Classification Problem Date Documented Da te Episodic/Chronic Unclassified (1 source) Transition into care - The patient is transitioning into care from an emergency room ([facility] ER 02/03/2023) and a summary of care was reviewed. 02-10-2023 Unclassified (1 source) [ADDITIONAL REASON] Follow up consultation - The patient is here to follow-up after Emergency Room/Urgent Care (Patient was seen at [facility] ER on 02/03/2023 for chest pain, Dyspnea and PVC's. Patient was discharged home with no new medications.). Note for Consultation follow-up : He will intermittent pressure feeling of the left side of chest, occurs daily. He will notice this more so in the evenings. Denies having shortness of breath currently. Patient states that his energy is eric dragging right now . 02-10-2023 Unclassified (1 source) Well adult male - The patient feels well with no complaints, has good energy level and is sleeping well. The patient is not using any method of contraception at this time. The patient has a balanced diet. The patient exercises daily (walking and stretches). The patient sleeps 5 hours per night. 10-28-2021 Unclassified (1 source) not feeling well - Had episode at work 11/26. He felt like passing out, had loose stool and nausea. He came to see MACARENA and she evaluated and told him to rest and observe. He continues to feel unwell and he is short of breath with talking. He feels funny but has continued to work.His father and brother had strokes. One brother had an GA. No family hx cardiomyopathy. 12-17-2020 Unclassified (1 source) Vomiting - Symptoms include nausea and vomiting, but do not include abdominal bloating, difficulty swallowing, painful swallowing, hematemesis, myalgias, chest pain, abdominal pain, pelvic pain or back pain. Emesis is characterized as undigested food (puked up everything in his stomach). Onset was sudden 4 hour(s) ago. The symptoms occur postprandially. The patient describes this as moderate in severity and improving (has not puked since this morning. only had one episode). Associated symptoms include lightheadedness (Schuyler dizzy after throwing up and had to sit down at work for a while. He went home a couple hours after starting work), but do not include fever, chills, headache, fatigue, weakness, weight loss, diarrhea, constipation, melena or amenorrhea. Note for Vomiting : only had a granola bar for breakfast. Was feeling a little tired last night, but denies any other symptoms.He went to sleep for a couple hours after he got home and reports that he is feeling much better at this time.Patient's is concerned because he has HTN and has had multiple family members who have had a stroke. 11-26-2020 Unclassified (1 source) Cold Symptoms - Symptoms include nasal congestion, runny nose, dry cough, wheezing (SOB) and headache, but do not include fever. The onset was gradual 3 week(s) ago. The symptoms occur constantly. The patient describes this as moderate in severity and worsening. Current treatment includes allergy medications. Patient denies history of seasonal allergies. 06-14-2014 Unclassified (1 source) f/u Hemochromatosis - pt gets phlebotomy q 6mos and bloodwork q 3 mos. No complaints, states when he nears time for phlebotomy he becomes very fatigued. 11-15-2012 Unclassified (1 source) Well adult male - The patient feels well with minor complaints, has good energy level and is sleeping well. Date of most recent cholesterol screening : (today). Date of most recent glucose screening : (today). Last Tetanus booster: unknown/unsure. Patient does not exercise. 12-10-2010 Results Test Name Value Interpretation Reference Range Facil ity Vital Signs Date Time Vital Sign Value Performing Clinician Faci lity 02-10-2023 08:59-0500 Body height 180.34 cm Seema Ornelas RN [employer], [employer]. 02-10-2023 08:59-0500 Body mass index (BMI) [Ratio] 36.68 kg/m2 Seema Ornelas RN [employer], [employer], [employer]. 02-10-2023 08:59-0500 Body surface area Derived from formula 2.37 m2 Seema Ornelas RN [employer], [employer]. 02-10-2023 08:59-0500 Body temperature 98.3 [degF] Seema Ornelas RN [employer].; [employer]. Encounters Encounter Date Encounter Type Care Provider Facility Start: 02-15-2023 End: 02-15-2023 ambulatory JOSE SOOD [facility] Start: 02-10-2023 End: 02-10-2023 Office outpatient visit 25 minutes [facility]eli [facility] Start: 01-16-2023 Telephone encounter Tod lambert MD Work Phone: Hematology/Oncology Procedures Date Procedure Procedure Detail Performing Clinician Start: 02-10-2023 End: 02-16-2023 Myocardial spect multiple studies Jose Sood PA-C Work Phone: Start: 01-05-2023 Us abdominal real ti me w/image limited Tod Cruz MD Work Phone: Start: 11-30-2022 End: 11-30-2022 Lab findings surveillance Seema valentine RN Plan of Treatment Date Care Activity Detail Author Start: 12-30-2022 End: 03-31-2023 [id number] [Mass/volume] in Serum or Plasma ALPHA FETOPROTEIN BL Lab Routine Hereditary hemochromatosis (HCC) Expected: 12/30/2022, Expires: 03/31/2023 [facility] Work Phone: Payers Date Payer Category Payer Unknown [id number] 2022 Unknown [id number] 1970 Unknown [id number] Social History Date Type Detail Facility Tobacco smoking status [facility] Tobacco smoking consumption unknown [facility] Start: 1970 Sex Assigned At Not on file [facility] Start: 12-30-2022 Gender identity Not on file [facility] Start: 12-30-2022 Tobacco smoking status NHIS Ex-smoker [facility] End: 03-06-1995 History of tobacco use Current smoker [facility] End: 03-06-1995 History of tobacco use Cigarette Smoker [facility] Start: 12-30-2022 Tobacco use and exposure Smokeless tobacco non-user [facility] Start: 12-30-2022 History of Social function [facility].; [facility] National Score (1-100), lower number is lower risk 33 [facility] Start: 12-30-2022 Tobacco Comment Pt smoked one cigarette daily x 5 years. [facility] Tobacco Use: Tobacco Use: ; [facility] or[facility]. [facility]. [facility] Work Phone: Clinical Notes 12-15-2022 to 01-16-2023 Telephone Encounter - Tatum Kim RN - 01/16/2023 4:23 PM ESTTelephone Encounter - Jazmín Robles - 01/16/2023 9:15 AM Mallika Morales RDMS - 01/05/2023 7:45 AM EDT Note Date & Type Note Facility 01-16-2023 Miscellaneous Notes Discussed with Dr. Cruz. Liver US ok. Continue with f/u in March as scheduled. Priya Kim RN Called patient, spoke with Ewa. Aware of above. Denies questions and ok with plan. Priya Kim RN Patient called in this morning stating he had an ultrasound on 01/05/2023 ordered by and he still has not received the results. Please review and advise so we can relay results to patient. Jazmín Arteaga documented in this encounter [facility] 01-05-2023 Note HNO ID: [id number] Author: Mallika Owusu RDMS Service: ? Author Type: Corporate Relations Director Type: Progress Notes Filed: 01/05/2023 8:10 AM Note Text: Radiology Service Progress Note PATIENT NAME: Leobardo Hughes DATE OF SERVICE: January 05, 2023 TIME: 8:09 AM PATIENT IDENTITY VERIFICATION COMPLETED USING TWO (2) IDENTIFIERS: Name and Date of confirmed by patient verbally. FALL SCREENING: Has the patient had 2 falls in the last year or 1 fall with injury or currently using an Ambulatory Assistive Device (Walker, Cane, Wheelchair, Crutches, etc.)? No PATIENT GENDER DATA: Male PATIENT RELEVANT IMPLANT DATA REVIEWED: Not Applicable RADIOLOGY DEPARTMENT: Ultrasound PERIPHERAL IV DATA: Not applicable SIGNED BY: Mallika Owusu RDMS January 05, 2023 8:09 AM [facility] 01-05-2023 History of Presen t illness Narrative Radiology Service Progress Note PATIENT NAME: Leobardo Hughes DATE OF SERVICE: January 05, 2023 TIME: 8:09 AM PATIENT IDENTITY VERIFICATION COMPLETED USING TWO (2) IDENTIFIERS: Name and Date of confirmed by patient verbally. FALL SCREENING: Has the patient had 2 falls in the last year or 1 fall with injury or currently using an Ambulatory Assistive Device (Walker, Cane, Wheelchair, Crutches, etc.)? No PATIENT GENDER DATA: Male PATIENT RELEVANT IMPLANT DATA REVIEWED: Not Applicable RADIOLOGY DEPARTMENT: Ultrasound PERIPHERAL IV DATA: Not applicable SIGNED BY: Mallika Owusu RDMS January 05, 2023 8:09 AM documented in this encounter [facility] 12-30-2022 Note HNO ID: [id number] Author: Mikayla Spivey RN Service: ? Author Type: Registered Nurse Type: Progress Notes Filed: 12/30/2022 12:26 PM Note Text: Phlebotomy today per Dr. Cruz. [facility] 12-30-2022 Note HNO ID: [id number] Author: Tod Cruz MD Service: ? 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 Ferritin was 475 at diagnosis. Started with phlebotomy every 2 weeks, for 6 months then went to monthly, then tapered to once a year/ Last phlebotomy was March 2022. CLINICAL IMPRESSION: Reported history of hemochromatosis. RECOMMENDATION/PLAN: 1. Confirm with hemochromatosis gene mutation assay 2. Phlebotomy today 3. Recheck 3 months 4. AFP, liver us Written and verbal health teaching given to patient, patient verbalizes understanding and agrees with treatment plan. PAST MEDICAL HISTORY Diagnosis Date Hypertension History reviewed. No pertinent surgical history. FAMILY HISTORY Problem Relation Age of Onset Hypertension Mother Heart Mother Stroke Father Stroke Brother Heart Brother Social History Tobacco Use Smoking status: Former Years: 5 Types: Cigarettes Quit date: 1995 Years since quittin.8 Smokeless tobacco: Never Tobacco comments: Pt smoked one cigarette daily x 5 years. ALLERGIES: ALLERGIES No Known Allergies CURRENT OUTPATIENT MEDICATIONS: losartan (COZAAR) 50 mg tablet Take 1 1/2 tablets by mouth once daily. REVIEW OF SYSTEMS: GENERAL: No fever, night sweats, weight loss or malaise. All other reviewed and negative other than HPI. PHYSICAL EXAMINATION: VITAL SIGNS: BP 150/75 Pulse 76 Temp (Src) 97.8 (Temporal) Ht 5' 10.5 (1.79m) Wt 259 lb (117.5kg) SpO2 97% BMI 36.63 kg/(m2). GENERAL APPEARANCE: Well appearing, in no acute distress, alert and oriented x3, well-hydrated, well nourished. I spent a total of 45 minutes on the date of the service which included preparing to see the patient, [id number] patient care, completing clinical documentation, obtaining and/or reviewing separately obtained history, counseling and educating the patient/family/caregiver, ordering medications, tests, or procedures, independently interpreting results (not separately reported), and communicating results to the patient/family/caregiver. Electronically Signed: Tod Cruz MD December 30, 2022 12:00 PM [facility] 12-30-2022 History of Presen t illness Narrative Phlebotomy today per Dr. Cruz. 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 Ferritin was 475 at diagnosis. Started with phlebotomy every 2 weeks, for 6 months then went to monthly, then tapered to once a year/ Last phlebotomy was March 2022. CLINICAL IMPRESSION: Reported history of hemochromatosis. RECOMMENDATION/PLAN: 1. Confirm with hemochromatosis gene mutation assay 2. Phlebotomy today 3. Recheck 3 months 4. AFP, liver us Written and verbal health teaching given to patient, patient verbalizes understanding and agrees with treatment plan. PAST MEDICAL HISTORY Diagnosis Date Hypertension History reviewed. No pertinent surgical history. FAMILY HISTORY Problem Relation Age of Onset Hypertension Mother Heart Mother Stroke Father Stroke Brother Heart Brother Social History Tobacco Use Smoking status: Former Years: 5 Types: Cigarettes Quit date: 1995 Years since quittin.8 Smokeless tobacco: Never Tobacco comments: Pt smoked one cigarette daily x 5 years. ALLERGIES: ALLERGIES No Known Allergies CURRENT OUTPATIENT MEDICATIONS: losartan (COZAAR) 50 mg tablet Take 1 1/2 tablets by mouth once daily. REVIEW OF SYSTEMS: GENERAL: No fever, night sweats, weight loss or malaise. All other reviewed and negative other than HPI. PHYSICAL EXAMINATION: VITAL SIGNS: BP 150/75 Pulse 76 Temp (Src) 97.8 (Temporal) Ht 5' 10.5 (1.79m) Wt 259 lb (117.5kg) SpO2 97% BMI 36.63 kg/(m^2). GENERAL APPEARANCE: Well appearing, in no acute distress, alert and oriented x3, well-hydrated, well nourished. I spent a total of 45 minutes on the date of the service which included preparing to see the patient, [id number] patient care, completing clinical documentation, obtaining and/or reviewing separately obtained history, counseling and educating the patient/family/caregiver, ordering medications, tests, or procedures, independently interpreting results (not separately reported), and communicating results to the patient/family/caregiver. Electronically Signed: Tod Cruz MD December 30, 2022 12:00 PM documented [facility] 12-29-2022 Miscellaneous Notes Pended. Alondra Smith LPN We were told to add on patient for CBC lab tomorrow before appt with Dr. Dugan, but there aren't any orders in. Please order and sign labs. Thank you, Saloni documented in this encounter [facility] 12-15-2022 Miscellaneous Notes Received referral from Nurse Spoke with pt and scheduled Placed red referral in Appointment folder at [facility] desk documented in [facility] encounter [facility] Diagnosis Hereditary hemochromatosis (HCC)- Primary Hereditary hemochromatosis [facility] Diagnosis Hereditary hemochromatosis (HCC) Hereditary hemochromatosis [facility] Diagnosis Other hemochromatosis- Primary [facility] Diagnostic Procedure Only (Routine) - Authorized Specialty Diagnoses / Procedures Referred By Tio davidson Referred To Contact [facility] Diagnoses Hereditary hemochromatosis (HCC) Procedures US ABD RIGHT UPPER QUADRANT US ABDOMINAL [place] W/[place] [address] [place] [address] [place] [address] Referral ID Status Reason Start Date Expiration Date Visits Requested Visits Authorized [id number] Authorized Auto-Generat ed Referral 01/29/2024 1 1 [facility] Diagnostic Procedure Only (Routine) - Closed Specialty Diagnoses / Procedures Referred By Tio davidson Referred To Contact [facility] Diagnoses Hereditary hemochromatosis (HCC) Procedures US ABD RIGHT UPPER QUADRANT US ABDOMINAL [place] [id number] [place] [address] Referral ID Status Reason Start Date Expiration Date V isits Requested Visits Authorized [id number] Closed Auto-Generate d Referral 12/30/2022 01/29/2024 1 1 [facility] Summary Purpose Family History Cerebrovascular Accident Status:Active Comment s:Father. Brother. Coronary Artery Disease Status:Active Comments :Father. Hypertension Status:Active Comments:Father. Advance Directives No Advanced Directives Records FoundNo Advanced Directives Records FoundNo Advanced Directives Records Found Additional Source Comments (unrecognized sect ion and content) No Status Records FoundNo Status Records FoundNo Status Records Found INFORMATION SOURCE (unrecogn ized section and content) DATE CREATED AUTHOR AUTHOR'S ORGANIZ ATION 01/29/2023 [facility] DATE CREATED AUTHOR AUTHOR'S ORGANIZ ATION 02/17/2023 [facility] Source Comments (unrecognize d section and content) In the event this informatio n is protected by the Federal Confidentiality of Alcohol and Drug Abuse Patient Records regulations: The Federal rules restrict any use of the information to criminally investigate or prosecute any alcohol or drug abuse patient.[facility] the event this information is protected by the Federal Confidentiality of Alcohol and Drug Abuse Patient Records regulations: The Federal rules restrict any use of the information to criminally investigate or prosecute any alcohol or drug abuse patient.[facility] the event this information is protected by the Federal Confidentiality of Alcohol and Drug Abuse Patient Records regulations: The Federal rules restrict any use of the information to criminally investigate or prosecute any alcohol or drug abuse patient.[facility] the event this information is protected by the Federal Confidentiality of Alcohol and Drug Abuse Patient Records regulations: The Federal rules restrict any use of the information to criminally investigate or prosecute any alcohol or drug abuse patient.[facility] the event this information is protected by the Federal Confidentiality of Alcohol and Drug Abuse Patient Records regulations: The Federal rules restrict any use of the information to criminally investigate or prosecute any alcohol or drug abuse patient.[facility] the event this information is protected by the Federal Confidentiality of Alcohol and Drug Abuse Patient Records regulations: The Federal rules restrict any use of the information to criminally investigate or prosecute any alcohol or drug abuse patient.[facility] Reason for Visit (unrecogniz ed section and content) Reason Comments Phlebotomy Reason Comments New Patient Evaluation Reason Comments Radiology US Specialty Diagnoses / Procedures Referred By Contac t Referred To Contact US IMAGING Diagnoses Hereditary hemochromatosis (HCC) Procedures US ABD RIGHT UPPER QUADRANT US ABDOMINAL REAL [place] W/[place] [address] [place] [address] [place] [address] Referral ID Status Reason Start Date Expiration Date V isits Requested Visits Authorized [id number] Closed Auto-Generate d Referral 12/30/2022 01/29/2024 1 1 Reason Comments Results Ultrasound done on 03/07/2022 Reason Comments Orders Care Teams (unrecognized sec tion and content) Web Graphic Designer Relationship Specialty Start Date End Date Meli Soriano [address] [place] [phone] PCP - General Family Medicine 12/30/22 Web Graphic Designer Relationship Specialty Start Date End Date Meli Soriano [address] [place] [phone] PCP - General Family Medicine 12/30/22 Tod Cruz MD [address] [place] [address] Hematology/Oncology 01/05/23 Web Graphic Designer Relationship Specialty Start Date End Date Meli Soriano [address] [place] [phone] PCP - General Family Medicine 12/30/22 Tod Cruz MD [address] [place] [address] Hematology/Oncology 01/05/23 Web Graphic Designer Relationship Specialty Start Date End Date Meli Soriano [address] [place] [phone] PCP - General Family Medicine 12/30/22 Tod Cruz MD [address] [place] [address] Hematology/Oncology 01/05/23 FOR RECORDS PERTAINING TO PATIENTS WHO ARE OR HAVE BEEN ENROLLED IN A CHEMICAL DEPENDENCY/SUBSTANCEABUSE PROGRAM, SOME INFORMATION MAY BE OMITTED. This clinical summary was aggregated from multiple sources. Caution should be exercised in using it in the provision of clinical care. This summary normalizes information from multiple sources, and as a consequence, information in this document may materially change the coding, format and clinical context of patient data. In addition, data may be omitted in some cases. CLINICAL DECISIONS SHOULD BE BASED ON THE PRIMARY CLINICAL RECORDS. [employer] [facility]. provides no warranty or guarantee of the accuracy or completeness of information in this document.
--- NOTE | 2023-03-24 10:03 | CL.D_ITS ---
Patient Name: ALLYSSA HUGHES Study Date: 03/24/2023 Performing: Armando Biswas MD Ht: 71 inches 180.34 cm : 1970 Wt: 266.01 lbs 120.66 kg Age: 53 Gender: male BSA: 2.38 PROCEDURE(S) PERFORMED DC01-(12276)LHC/COR/LV CLINICAL PROFILE AND INDICATIONS Indications: Suspected CAD Heart Failure: None Stress/Imaging Date: 02/25/23Stress Test with SPECT MPI: Negative CAD Presentations: Stable angina. CONCLUSIONS Normal coronary arteries Normal LV size, wall motion,and systolic function RECOMMENDATIONS Medical therapy DESCRIPTION OF PROCEDURE The patient arrived to the procedure lab. The risks and benefits of the procedure as well as a full description of our services here and current unavailability of surgical backup were fully explained to the patient and/or their significant other prior to the catheterization. The Timeout was completed, verifying the correct patient and procedure. The patient's procedural site was prepped and draped in the usual fashion. Local anesthetic was given subcutaneously to right radial region with Lidocaine 2%. Using a modified Seldinger technique, arterial access was obtained via the right radial artery, a 6Fr sheath was inserted. Right Coronary Artery selective angiography was then performed in multiple views using a 5 Fr. 4.0 Ranson catheter. Left Coronary Artery selective angiography was performed in multiple views using a 5 Fr. JL3.5 catheter. Left Ventriculography was performed in STORY projection using a 5 Fr. Pigtail catheter. LV to AO pullback pressures were then recorded.The arterial sheath was pulled and a TR Band was applied for hemostasis CORONARY ANGIOGRAPHY DOMINANCE: Right Dominant LEFT HEART ASSESSMENT Left Ventricular Ejection Fraction: by LV Gram 60 % Normal LV wall motion Normal Left Ventricular systolic function Normal Left Ventricular systolic function LEFT MAIN: Angiographically normal LEFT ANTERIOR DESCENDING ARTERY: Angiographically normal CIRCUMFLEX ARTERY: Angiographically normal RIGHT CORONARY ARTERY: Angiographically normal COMPLICATIONS No Complications PROCEDURE MEDICATIONS Versed 1 mg IV Fentanyl 50 mcg IV Versed 1 mg IV Oxygen: 2 L/min via nasal cannula Heparin given IA 03/24/2023 09:29:30 Verapamil 2.5mg, Ntg 100mcgs, 3000 units of Heparin given IA 03/24/2023 09:29:30 SUMMARY OF HEMODYNAMIC DATA Time AIR REST ECG 07:01:36 ECG 09:09:51 Art 150/79 (106) 09:25:55 AO 141/83 (108) SA 09:35:36 LV 119/12, 27 09:47:45 LV 123/10, 28 09:47:51 LVp 103/23, 38 09:48:08 AOp 146/85 (117) 09:48:13 AIR REST 10:01:24 Signed By Armando Biswas MD On 03/24/2023 10:02:30 Armando Biswas MD
== END 2023-03-24 11:40 | disposition home or self-care (01) ==
LOC: CLSP 06:45
PROVIDERS: PCP Family Medicine; Referring Provider Family Medicine; Visit Provider Internal Medicine Cardiovascular Disease
DX: I20.89 Other forms of angina pectoris (principal); I10 Essential (primary) hypertension; R06.02 Shortness of breath; Z79.82 Long term (current) use of aspirin; Z79.899 Other long term (current) drug therapy; Z87.891 Personal history of nicotine dependence; I49.3 Ventricular premature depolarization
CPT/HCPCS: 93458; 99152; 99153; J7040; Q9967; C1769; C1894

== ENCOUNTER → 2024-12-25 | Outpatient (CLI) | payer OTHER, SELFPAY ==
--- NOTE | 2024-12-25 14:35 | ECHOD_ITS ---
Reason For Study Reason For Study: Hemochromatosis Procedure This was a 2D Doppler, Color Flow transthoracic echocardiogram. Exam performed in department. Left Ventricle Normal LV size. Left ventricular systolic function is normal. The left ventricular ejection fraction is 65 %. No regional wall motion abnormalities noted. Right Ventricle Normal RV size. Normal systolic function. Atria Normal left atrium. Normal right atrium. Mitral Valve Normal mitral valve. Tricuspid Valve Normal tricuspid valve. Aortic Valve Normal aortic valve. Trisinus/trileaflet aortic valve. Pulmonic Valve Normal pulmonic valve. Great Vessels Normal aortic root. The pulmonary artery is normal size. Inferior vena cava collapse with respiration. Pericardium/Pleural No pericardial effusion. MMode/2D Measurements & Calculations LVIDd: 5.1 cm IVSd: 1.2 cm Ao root diam: 3.5 cm LVIDs: 3.0 cm LVPWd: 0.95 cm RVDd: 4.0 cm FS: 40.5 % LAV(MOD-bp): 31.6 ml LVAd ap4: 34.8 cm2 SV(MOD-sp4): 71.9 ml LAV(MOD-bp) Indexed: 13.4 ml/m2 LVLd ap4: 8.5 cm SI(MOD-sp4): 30.4 ml/m2 LAV(MOD-sp2): 38.6 ml EDV(MOD-sp4): 113.5 ml LAV(MOD-sp4): 26.9 ml EDV(sp4-el): 120.4 ml LVAs ap4: 18.9 cm2 LVLs ap4: 7.3 cm ESV(MOD-sp4): 41.6 ml ESV(sp4-el): 41.5 ml EF(MOD-sp4): 63.3 % EF(sp4-el): 65.5 % SV(sp4-el): 78.9 ml LA A4 area: 12.6 cm2 LA dimension(2D): 4.5 cm RA A4 area: 11.4 cm2 TAPSE: 2.6 cm Time Measurements MV dec time: 0.14 sec Doppler Measurements & Calculations MV E max adis: 78.2 cm/sec Lat Peak E' Adis: 8.4 cm/sec Med Peak E' Adis: 8.6 cm/sec MV A max adis: 63.6 cm/sec E/E' lat: 9.3 E/E' med: 9.1 MV E/A: 1.2 MV V2 max: 95.8 cm/sec MV P1/2t max adis: 97.7 cm/sec Ao V2 max: 131.9 cm/sec MV max P.7 mmHg MV P1/2t: 49.6 msec Ao max P.0 mmHg MV V2 mean: 47.1 cm/sec Ao V2 mean: 91.8 cm/sec MV mean P.1 mmHg MV dec slope: 577.5 cm/sec2 Ao mean P.9 mmHg MV V2 VTI: 24.4 cm MVA(P1/2t): 4.4 cm2 Ao V2 VTI: 28.1 cm AV (velocity ratio): 0.71 LV V1 max: 95.9 cm/sec LV V1 max P.7 mmHg LV V1 mean P.9 mmHg LV V1 mean: 63.9 cm/sec LV V1 VTI: 20.0 cm ECHO/Echo Complete Interpretation Summary Normal LV size. Left ventricular systolic function is normal. The left ventricular ejection fraction is 65 %. Structurally normal valves. Ordering Physician: Ayan Antoine Referring Physician: Ayan Antoine Performed By: Kole Paniagua RCS
== END | disposition home or self-care (01) ==
LOC: CVS 14:30
PROVIDERS: PCP Family Medicine; Referring Provider Student in an Organized Health Care Education/Training Program; Visit Provider Student in an Organized Health Care Education/Training Program
DX: E83.119 Hemochromatosis, unspecified (principal)
CPT/HCPCS: 93306